=== PATIENT | female | born 1965 | race Caucasian/White ===

== ENCOUNTER 2019-06-07 19:20 | Inpatient (IN) | payer OTHER ==
[~2019-06-07] VITALS: Ht 157.5 cm; Wt 63.0 kg
[2019-06-07] MEDS ORDERED: MORPHINE SULFATE 4 MG/ML CPJ (NOT FOR IM USE) IV STA (19:53)
[2019-06-07] MEDS ORDERED: ONDANSETRON HCL 4MG/2ML INJ IV STA (19:53)
[2019-06-07] MEDS ORDERED: KETOROLAC 30MG/ML VIAL IV STA (19:53)
[2019-06-07] MEDS ORDERED: ASPIRIN 81MG TABLET PO ONE (20:00)
[2019-06-07 20:18] LABS: BASOPHILS % 0.7 % (0.0-2.0); EOSINOPHILS % 1.2 % (0.0-5.0); HEMATOCRIT. 34.5 % (36.0-48.0); HEMOGLOBIN. 12.1 g/dL (12.0-16.0); LYMPHOCYTES % 34.1 % (20.0-50.0); MEAN CORPUSCULAR VOLUME 88.8 fL (81.0-99.0); MEAN PLATELET VOLUME 7.2 fl (7.4-10.4); MONOCYTES % 6.5 % (2.0-8.0); NEUTROPHILS % 57.5 % (40.0-76.0); PLATELET 263 x1000/uL (130-400); RED BLOOD CELL COUNT 3.89 mill/uL (4.2-5.4); RED CELL DISTRIBUTION WIDTH 11.9 % (11.6-14.6)
[2019-06-07 20:22] LABS: CHLORIDE 99 mEq/L (98-107)
[2019-06-07 20:24] LABS: INR 0.9; PARTIAL THROMBOPLASTIN TIME 24.4 sec (23.4-31.0)
[2019-06-07 20:26] LABS: ETHANOL BLOOD < 10 mg/dL
[2019-06-07 20:57] LABS: CLARITY URINE CLEAR (CLEAR); COLOR URINE YELLOW (YELLOW); KETONES URINE TRACE (NEGATIVE); LEUKOCYTE ESTERASE URINE TRACE (NEGATIVE); NITRITE URINE NEGATIVE (NEGATIVE); OCCULT BLOOD URINE NEGATIVE (NEGATIVE); PH URINE 8.5 (4.5-8.0); PROTEIN URINE TRACE (NEGATIVE); SPECIFIC GRAVITY URINE 1.013 (1.005-1.030); UROBILINOGEN URINE 0.2 E.U./dL (0.2-1.0)
[2019-06-07] MEDS ORDERED: LORAZEPAM 2MG/ML CPJ IV ONE (21:00)
[2019-06-07] MEDS ORDERED: METOCLOPRAMIDE HCL 10MG/2ML VIAL IV ONE (21:00)
[2019-06-07 21:07] LABS: *AMPHETAMINES SCREEN URINE NEGATIVE (NEGATIVE); *BARBITURATES SCREEN URINE NEGATIVE (NEGATIVE); *BENZODIAZEPINES SCREEN URINE NEGATIVE (NEGATIVE); *COCAINE SCREEN URINE NEGATIVE (NEGATIVE); METHADONE URINE SCREEN NEGATIVE (NEGATIVE); OPIATES URINE SCREEN PRESUMTIVE POSITIVE (NEGATIVE)
[2019-06-07 21:09] LABS: CANNABINOID URINE SCREEN NEGATIVE (NEGATIVE); PHENCYCLIDINE URINE SCREEN NEGATIVE (NEGATIVE)
[2019-06-08] VITALS (10 sets, daily range): BP systolic 98–126; BP diastolic 60–70
[2019-06-08] MEDS ORDERED: CHOL40002 PO (05:07)
[2019-06-08] MEDS ORDERED: GLIM1TAB MT (05:07)
[2019-06-08] MEDS ORDERED: METF-416 MT (05:07)
[2019-06-08] MEDS ORDERED: LISI-604 MT (05:07)
[2019-06-08] MEDS ORDERED: ATOR20TA65 MT (05:07)
[2019-06-08] MEDS ORDERED: MORPHINE SULFATE 2 MG/ML CPJ (NOT FOR IM USE) IV PRN (06:15)
[2019-06-08] MEDS ORDERED: NITROGLYCERIN 0.4MG TABLET SL SL PRN (06:15)
[2019-06-08] MEDS ORDERED: DEXTROSE 50% WATER 50ML SYRINGE IV PRN (06:15)
[2019-06-08] MEDS: BLOOD SUGAR DIAGNOSTIC STRIP TEST SCH ×4 (06:50→20:43)
[2019-06-08] MEDS: INSULIN LISPRO 100 UNITS/ML SUBCUT SCH ×4 (07:20→20:48)
[2019-06-08] MEDS ORDERED: POTASSIUM CHLORIDE INJ 40 MEQ in DEXT 5% WATER 250 ML IV NR (08:00)
[2019-06-08] MEDS: METFORMIN HCL 500MG TABLET PO SCH ×2 (08:29→17:15)
[2019-06-08] MEDS: ASPIRIN 325MG TABLET PO SCH (08:30)
[2019-06-08 08:49] LABS: BASOPHILS % 0.8 % (0.0-2.0); EOSINOPHILS % 1.8 % (0.0-5.0); HEMATOCRIT. 30.6 % (36.0-48.0); HEMOGLOBIN. 10.5 g/dL (12.0-16.0); LYMPHOCYTES % 38.5 % (20.0-50.0); MEAN CORPUSCULAR HEMOGLOBIN 30.9 pg (28.0-32.0); MEAN PLATELET VOLUME 7.3 fl (7.4-10.4); NEUTROPHILS % 50.9 % (40.0-76.0); PLATELET 229 x1000/uL (130-400); RED CELL DISTRIBUTION WIDTH 12.4 % (11.6-14.6)
[2019-06-08] MEDS ORDERED: METOPROLOL TARTRATE 50MG TABLET PO SCH (09:00)
[2019-06-08 09:15] LABS: HDL CHOLESTEROL 38 mg/dL (40-59); LDL CHOLESTEROL 105 mg/dL (5-100)
[2019-06-08] MEDS ORDERED: POTASSIUM CHLORIDE 20MEQ TABLET SR PO NR (12:37)
[2019-06-08] MEDS: ENOXAPARIN 40MG/0.4ML SYR SUBCUT SCH (14:09)
[2019-06-08] MEDS: INSULIN GLARGINE UD 100 UNITS/ML SYR SUBCUT SCH ×2 (14:11→21:59)
[2019-06-08] MEDS ORDERED: REGADENOSON 0.4 MG/5 ML IV ONE (19:15)
[2019-06-08] MEDS: METOPROLOL TARTRATE 25MG TABLET PO SCH (20:39)
[2019-06-09] VITALS (9 sets, daily range): BP systolic 96–145; BP diastolic 47–86
[2019-06-09] MEDS: BLOOD SUGAR DIAGNOSTIC STRIP TEST SCH ×2 (05:38→11:50)
[2019-06-09 06:12] LABS: CHLORIDE 109 mEq/L (98-107)
[2019-06-09 06:18] LABS: C REACTIVE PROTEIN QUANT 0.6 mg/L (0.0-3.0)
[2019-06-09 06:19] LABS: LDL CHOLESTEROL 104 mg/dL (5-100)
[2019-06-09 06:21] LABS: HDL CHOLESTEROL 41 mg/dL (40-59)
[2019-06-09 06:23] LABS: CREATINE KINASE MB FRACTION < 1.0 ng/mL (0.5-3.6)
[2019-06-09 06:25] LABS: T4 FREE 1.02 ng/dL (0.76-1.46)
[2019-06-09 06:38] LABS: BASOPHILS % 0.7 % (0.0-2.0); EOSINOPHILS % 2.8 % (0.0-5.0); HEMATOCRIT. 33.7 % (36.0-48.0); HEMOGLOBIN. 11.6 g/dL (12.0-16.0); LYMPHOCYTES % 43.2 % (20.0-50.0); MEAN CORPUSCULAR HEMOGLOBIN 31.4 pg (28.0-32.0); MEAN CORPUSCULAR VOLUME 90.9 fL (81.0-99.0); MEAN PLATELET VOLUME 7.2 fl (7.4-10.4); MONOCYTES % 5.9 % (2.0-8.0); NEUTROPHILS % 47.4 % (40.0-76.0); PLATELET 236 x1000/uL (130-400); RED BLOOD CELL COUNT 3.71 mill/uL (4.2-5.4); RED CELL DISTRIBUTION WIDTH 12.5 % (11.6-14.6)
[2019-06-09] MEDS: INSULIN LISPRO 100 UNITS/ML SUBCUT SCH ×2 (07:20→13:06)
[2019-06-09] MEDS ORDERED: REGADENOSON 0.4 MG/5 ML IV ONE (08:48)
[2019-06-09] MEDS: LISINOPRIL 10MG TABLET PO SCH ×2 (09:00→09:56)
[2019-06-09] MEDS: ASPIRIN 325MG TABLET PO SCH (09:52)
[2019-06-09] MEDS: METFORMIN HCL 500MG TABLET PO SCH (09:56)
[2019-06-09] MEDS: METOPROLOL TARTRATE 25MG TABLET PO SCH (09:56)
[2019-06-09] MEDS: ENOXAPARIN 40MG/0.4ML SYR SUBCUT SCH (13:04)
[2019-06-09 14:00] LABS: CREATINE KINASE 41 IU/L (26-192)
== END 2019-06-09 16:21 | disposition home or self-care (01) | DRG 206 ==
LOC: ER 19:20 → EDBEDREQ 23:35 → EDBEDREQTM 23:35 → ENRESERV 06-08 02:40 → 3WST 06-08 04:18
PROVIDERS: ADMIT Internal Medicine; ATTEND Internal Medicine
DX: M94.0 Chondrocostal junction syndrome [Tietze] (principal); E87.1 Hypo-osmolality and hyponatremia; I10 Essential (primary) hypertension; E78.5 Hyperlipidemia, unspecified; E87.6 Hypokalemia; E11.65 Type 2 diabetes mellitus with hyperglycemia; E78.00 Pure hypercholesterolemia, unspecified; Z82.49 Family history of ischemic heart disease and other diseases of the circulatory system; Z90.49 Acquired absence of other specified parts of digestive tract
CPT/HCPCS: 36415; 71045; 78452; 80048; 80053; 80061; 80305; 80320; 81003; 82550; 82553; 82962; 83036; 83615; 83735; 83880; 84439; 84443; 84484; 85025; 85379; 86140; 93005; 93017; 93306; 97162; 99285; A9500; J1650; J1815; J1885; J2060; J2270; J2405; J2765; J2785; J3480; J7060; G0480